=== PATIENT | male | born 1950 | race African-American/Black ===

== ENCOUNTER 2018-03-29 09:52 | Emergency (ER) | payer OTHER ==
[~2018-03-29] VITALS: Ht 152.4 cm; Wt 86.2 kg
[2018-03-29] MEDS ORDERED: AMLODIPINE BESY10 MG (10:00)
== END 2018-03-29 16:34 | disposition home or self-care (01) ==
LOC: ER 09:52
DX: S30.0XXA Contusion of lower back and pelvis, initial encounter (principal); S13.4XXA Sprain of ligaments of cervical spine, initial encounter; V49.9XXA Car occupant (driver) (passenger) injured in unspecified traffic accident, initial encounter; Y93.89 Activity, other specified; Y92.488 Other paved roadways as the place of occurrence of the external cause; Y99.8 Other external cause status